=== PATIENT | female | born 1990 | race Caucasian/White ===

== ENCOUNTER 2018-06-10 03:16 | Emergency (ER) | payer MEDICAID ==
[~2018-06-10] VITALS: Ht 160 cm; Wt 53.3 kg
[2018-06-10 03:25] VITALS: Ht 160 cm; Wt 53.3 kg
[2018-06-10 04:09] LABS: BASOPHIL % 1.3 % (0-2); PLATELET COUNT 342 x10^3mcL (130-400); RED CELL DISTRIBUTION WIDTH 13.6 % (11.5-14.5)
[2018-06-10 04:26] LABS: CALCIUM 8.5 mg/dL (8.5-10.1); CARBON DIOXIDE 25.5 mmol/L (21-32); CHLORIDE SERUM 104 mmol/L (98-107); CREATININE SERUM 0.7 mg/dL (0.6-1.0); GFR1 > 60 mL/min; GLUCOSE SERUM 106 mg/dL (74-106); POTASSIUM SERUM 3.2 mmol/L (3.5-5.1); SODIUM SERUM 139 mmol/L (136-145)
[2018-06-10 04:30] LABS: ALKALINE PHOSPHATASE 85 U/L (46-116); ALT/SGPT 9 U/L (14-59); AST/SGOT 21 U/L (15-37); BILIRUBIN TOTAL 0.28 mg/dL (0.20-1.00); LIPASE 98 IU/L (73-393)
[2018-06-10 04:31] LABS: TOTAL PROTEIN, SERUM 8.5 g/dL (6.4-8.2)
[2018-06-10 05:28] VITALS: BP 113/79
== END 2018-06-10 05:50 | disposition home or self-care (01) ==
LOC: ED 03:16
PROVIDERS: Emergency Medicine
DX: K29.70 Gastritis, unspecified, without bleeding (principal)
CPT/HCPCS: J1885; J2270; J2405; J7030